=== PATIENT | female | born 1980 | race Caucasian/White ===

== ENCOUNTER 2018-07-22 16:34 | Emergency (ER) | payer BC ==
[2018-07-22 16:49] VITALS: BP 120/83
--- NOTE | 2018-07-22 16:56 | UC ---
UC General HPI - HPI Summary HPI Summary: pt c/o a 1 week hx worsening sinus pressure and congestion. drainage is now purulent and foul in taste. hx sinusitis and this is similar. also c/o a sore throat that may be from post nasal drip but son just tested + for strep throat. - History of Current Complaint Stated Complaint: SORE THROAT Time Seen by Provider: 07/22/18 16:47 Hx Obtained From: Patient Onset/Duration: Gradual Onset Timing: Constant Associated Signs & Symptoms: Positive: Headache - Allergy/Home Medications Allergies/Adverse Reactions: Allergies Allergy/AdvReac Type Severity Reaction Status Date / Time No Known Allergies Allergy Verified 07/22/18 16:50 Home Medications: Home Medications Mucinex Sinus Max 1 tab PO BID PRN 07/22/18 [History] Triamcinolone NASAL SPRAY* [Nasacort AQ Nasal Samson*] 1 spr NASAL DAILY [History Confirmed 07/22/18] PMH/Surg Hx/FS Hx/Imm Hx - Additional Past Medical History Additional PMH: allergies - Surgical History Surgical History: Yes - GB - Family History Known Family History: Positive: Non-Contributory - Social History Lives: With Family - Immunization History Vaccination Up to Date: Yes Review of Systems All Other Systems Reviewed And Are Negative: Yes Constitutional: Positive: Fever - ? ENT: Positive: Sore Throat, Nasal Discharge, Sinus Congestion, Sinus Pain/ Tenderness Neurological: Positive: Headache Physical Exam Triage Information Reviewed: Yes Appearance: Well-Appearing Eyes: Positive: Conjunctiva Clear ENT: Positive: Pharynx normal, Nasal congestion, TMs normal, Sinus tenderness. Negative: Nasal drainage Neck: Positive: Supple, Nontender, No Lymphadenopathy Respiratory: Positive: Lungs clear, Normal breath sounds Cardiovascular: Positive: RRR, No Murmur Abdomen Description: Positive: Nontender Musculoskeletal: Positive: ROM Intact Neurological: Positive: Alert Psychological: Positive: Age Appropriate Behavior Skin Exam: Normal Course/Dx - Course Course Of Treatment: DIAGNOSTIC=RAPID STREP IS NEGATIVE - Diagnoses Provider Diagnosis: Sinusitis Discharge - Sign-Out/Discharge Documenting (check all that apply): Patient Departure All imaging exams completed and their final reports reviewed: No Studies - Discharge Plan Condition: Stable Disposition: HOME Prescriptions: Amoxicillin/Clavulanate TAB* [Augmentin TAB 875*] 875 mg PO BID 10 Days #20 tab Patient Education Materials: Sinusitis (ED) Referrals: Sawyer Barrow MD [Primary Care Provider] - Additional Instructions: START THE ANTIBIOTIC IF NOT FEELING BETTER WITHIN 3 DAYS, START IT SOONER FOR ANY WORSENING. FOLLOW UP WITH PRIMARY CARE IF NOT BETTER IN 7 DAYS OR SOONER IF WORSE. - Billing Disposition and Condition Condition: STABLE Disposition: Home - Attestation Statements Provider Attestation: I was available for consult. This patient was seen by the ALVARO. The patient was not presented to, seen by, or examined by me. -Roni
== END 2018-07-22 17:10 | disposition home or self-care (01) ==
LOC: UCCORT 16:34
DX: J32.9 Chronic sinusitis, unspecified (principal)
CPT/HCPCS: 87651; 99202; G0463

== ENCOUNTER 2018-08-29 16:13 | Emergency (ER) | payer BC ==
[2018-08-29 16:44] VITALS: BP 109/70
--- NOTE | 2018-08-29 17:21 | UC ---
UC General HPI - HPI Summary HPI Summary: pt seen here recently, dx with sinusitis and got better so never took an antibiotic. she returns for a 7-8 days hx of recurrent sinus congestion and pressure plus cough and chest congestion and purulent drainage from both. 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 - History of Current Complaint Chief Complaint: UCGeneralIllness Stated Complaint: COUGH/CONGESTION/SINUS Time Seen by Provider: 08/29/18 17:14 Hx Obtained From: Patient Hx Last Menstrual Period: August 08 Onset/Duration: Gradual Onset Timing: Constant Pain Intensity: 5 Associated Signs & Symptoms: Negative: Chest Pain - Allergy/Home Medications Allergies/Adverse Reactions: Allergies Allergy/AdvReac Type Severity Reaction Status Date / Time No Known Allergies Allergy Verified 08/29/18 16:44 PMH/Surg Hx/FS Hx/Imm Hx Previously Healthy: Yes - Surgical History Surgical History: Yes Surgery Procedure, Year, and Place: gall bladder removed. L ACL reconstructed. 2 bunions - Family History Known Family History: Positive: Non-Contributory - Social History Lives: With Family Alcohol Use: Occasionally Substance Use Type: None Smoking Status (MU): Never Smoked Tobacco - Immunization History Vaccination Up to Date: Yes Review of Systems All Other Systems Reviewed And Are Negative: Yes ENT: Positive: Nasal Discharge, Sinus Congestion, Sinus Pain/Tenderness Respiratory: Positive: Cough Physical Exam Triage Information Reviewed: Yes Appearance: Well-Appearing Vital Signs: Initial Vital Signs Temp 97.5 F 08/29/18 16:34 Pulse 68 08/29/18 16:34 Resp 18 08/29/18 16:34 BP 109/70 08/29/18 16:34 Pulse Ox 98 08/29/18 16:34 Vital Signs Reviewed: Yes Eyes: Positive: Conjunctiva Clear ENT: Positive: Pharynx normal, Nasal congestion, TMs normal, Sinus tenderness. Negative: Nasal drainage Neck: Positive: Supple, Nontender, No Lymphadenopathy Respiratory: Positive: Lungs clear, No accessory muscle use, Decreased breath sounds Cardiovascular: Positive: RRR, No Murmur Abdomen Description: Positive: Nontender, No Organomegaly, Soft Bowel Sounds: Positive: Present Musculoskeletal: Positive: ROM Intact Neurological: Positive: Alert Psychological: Positive: Age Appropriate Behavior Skin Exam: Normal Course/Dx - Diagnoses Provider Diagnosis: Sinusitis, Bronchitis Discharge - Sign-Out/Discharge Documenting (check all that apply): Patient Departure All imaging exams completed and their final reports reviewed: No Studies - Discharge Plan Condition: Stable Disposition: HOME Prescriptions: Albuterol HFA INHALER* [Ventolin HFA Inhaler*] 2 puff INH Q6H #1 mdi Amoxicillin/Clavulanate TAB* [Augmentin TAB 875*] 875 mg PO BID 10 Days #20 tab Patient Education Materials: Sinusitis (ED), Acute Bronchitis (ED) Referrals: Sawyer Barrow MD [Primary Care Provider] - 7 Days - Billing Disposition and Condition Condition: STABLE Disposition: Home
== END 2018-08-29 17:28 | disposition home or self-care (01) ==
LOC: UCCORT 16:13
DX: J32.9 Chronic sinusitis, unspecified (principal); J40 Bronchitis, not specified as acute or chronic
CPT/HCPCS: 99212; G0463